=== PATIENT | male | born 1960 | race Caucasian/White ===

== ENCOUNTER 2017-01-08 15:33 | Emergency (ER) | payer MEDICARE ==
[~2017-01-08] VITALS: Ht 190.5 cm; Wt 63.1 kg
[~2017-01-08 15:33] MED LIST: ADV250INH INH; IPRASOL4 IN; PROA1AER INH
[2017-01-08 15:34] VITALS: BP 138/83
[2017-01-08] MEDS ORDERED: AVEL1TAB PO (16:58)
[2017-01-08] MEDS ORDERED: PRED10TA PO (16:58)
== END 2017-01-08 17:24 | disposition home or self-care (01) ==
LOC: M ED 17:04
DX: J44.0 Chronic obstructive pulmonary disease with (acute) lower respiratory infection (principal); Z87.891 Personal history of nicotine dependence; Z79.51 Long term (current) use of inhaled steroids